=== PATIENT | male | born 1960 | race Caucasian/White ===

== ENCOUNTER 2019-03-10 06:00 | Outpatient (RCR) | payer BC, SELFPAY | END 2019-04-09 00:01 | LOC: SR3 06:00 | PROVIDERS: Family Provider Electrodiagnostic Medicine; Visit Provider Electrodiagnostic Medicine | DX: S06.2X9D Diffuse traumatic brain injury with loss of consciousness of unspecified duration, subsequent encounter (principal); X58.XXXD Exposure to other specified factors, subsequent encounter | CPT/HCPCS: 92507 ×6; 96125; 97110 ×17; 97112 ×11; 97530 ×3; 97535 ==

== ENCOUNTER 2019-04-10 17:37 | Outpatient (RCR) | payer BC, SELFPAY | END 2019-05-10 23:59 | disposition home or self-care (01) | LOC: SR3 17:37 | PROVIDERS: Family Provider Electrodiagnostic Medicine; Visit Provider Electrodiagnostic Medicine | DX: S06.2X9D Diffuse traumatic brain injury with loss of consciousness of unspecified duration, subsequent encounter (principal); X58.XXXD Exposure to other specified factors, subsequent encounter; R41.841 Cognitive communication deficit | CPT/HCPCS: 92507; 96125; 97110; 97112; 97530; 97535 ==

== ENCOUNTER → 2019-05-09 11:17 | Outpatient (BNVA) | payer BC, SELFPAY | PROVIDERS: Family Provider Electrodiagnostic Medicine; Referring Provider Electrodiagnostic Medicine; Visit Provider Otolaryngology | DX: J02.9 Acute pharyngitis, unspecified (principal); R49.0 Dysphonia | CPT/HCPCS: 31575; 99214 ==

== ENCOUNTER 2019-05-11 06:00 | Outpatient (RCR) | payer BC, SELFPAY | END 2019-06-08 23:59 | disposition home or self-care (01) | LOC: SR3 06:00 | PROVIDERS: Family Provider Electrodiagnostic Medicine; Visit Provider Electrodiagnostic Medicine | DX: S06.2X9D Diffuse traumatic brain injury with loss of consciousness of unspecified duration, subsequent encounter (principal); X58.XXXD Exposure to other specified factors, subsequent encounter | CPT/HCPCS: 92507; 97110; 97112; 97530 ==

== ENCOUNTER 2019-06-09 06:00 | Outpatient (RCR) | payer BC, SELFPAY | END 2019-07-09 23:59 | disposition home or self-care (01) | LOC: SR3 06:00 | PROVIDERS: Family Provider Electrodiagnostic Medicine; Visit Provider Electrodiagnostic Medicine | DX: S06.2X9A Diffuse traumatic brain injury with loss of consciousness of unspecified duration, initial encounter (principal); R41.841 Cognitive communication deficit; X58.XXXA Exposure to other specified factors, initial encounter | CPT/HCPCS: 92507; 97110; 97112 ==

== ENCOUNTER 2019-09-05 09:37 | Outpatient (CLI) | payer BC, SELFPAY ==
--- NOTE | 2019-09-05 09:42 | CT_ITS ---
WS: [id number] CT HEAD NONCONTRAST AND CONTRAST. TECHNIQUE: Noncontrast and contrast-enhanced CT of the head. CLINICAL INFORMATION: HEAD TRAUMA, TRAUMATIC ENCEPHALOPATHY, HYDROCEPHALUS COMPARISON: None. DLP: 1984.[address] scans at [facility] use at least one of these dose optimization techniques: automat ed exposure control; mA and/or kV adjustment per patient size (includes targeted exams where dose is matched to clinical indication); or iterative reconstruction. FINDINGS: Prior postoperative changes left frontal craniotomy with right frontoparietal craniectomy and right f rontotemporal craniotomy. Evidence of prior right frontotemporal fracture/fracture repair. Left frontal shunt catheter with tip in the third ventricle. Mild prominence of the frontal horns and third ventricle. No transependymal edema. Ex vacuo dilatation of the right lateral ventricle with en cephalomalacia involving the right posterior frontal, parietal, and temporal lobes. Chronic lacunar i nfarct involving the right jesus manuel. Chronic encephalomalacia involving the right parasagittal parietal a nd occipital lobes. Small chronic infarct left frontal lobe. No extra-axial fluid collections. No abnormal intracranial enhancement. Mastoid air cells well aerate d. Paranasal sinuses are well aerated. CT/CT head wo/w con [id number] IMPRESSION: 1. Evidence of prior traumatic brain injury with right frontal parietal and te mporal fractures and fracture repair with craniotomy and craniectomy. 2. Expected dilatation right lateral ventricle posterior horn with encephaloma lacia in the right posterior frontal and parietal lobes extending into the supe rior temporal lobe. 3. Left frontal shunt catheter with tip in the third ventricle. Mild prominenc e of the frontal horns and third ventricles. No transependymal edema. No signif icant hydrocephalus. 4. Normal fourth ventricle. 5. No abnormal intracranial enhancement.
[2019-09-05 10:09] LABS: Blood Urea Nitrogen 14 mg/dL (8-23); Glomerular Filtration Rate 68.3 mL/min (90-130)
[2019-09-05] MEDS: iohexol 300 mg/mL 100 mL Btl IV (10:22)
== END 2019-09-05 09:38 | disposition home or self-care (01) ==
LOC: RADWPI 09:39
PROVIDERS: Family Provider Electrodiagnostic Medicine; Visit Provider Electrodiagnostic Medicine
DX: Z98.2 Presence of cerebrospinal fluid drainage device (principal); G25.2 Other specified forms of tremor; F02.80 Dementia in other diseases classified elsewhere, unspecified severity, without behavioral disturbance, psychotic disturbance, mood disturbance, and anxiety; G91.9 Hydrocephalus, unspecified; S09.90XA Unspecified injury of head, initial encounter; X58.XXXA Exposure to other specified factors, initial encounter
CPT/HCPCS: 70470; 82565; 84520; Q9967

== ENCOUNTER 2019-12-04 06:00 | Outpatient (RCR) | payer BC, SELFPAY | END 2019-12-09 23:59 | disposition home or self-care (01) | LOC: SST 06:00 | PROVIDERS: PCP Electrodiagnostic Medicine; Referring Provider Electrodiagnostic Medicine; Visit Provider Electrodiagnostic Medicine | DX: I69.391 Dysphagia following cerebral infarction (principal); R41.841 Cognitive communication deficit; S06.2X9S Diffuse traumatic brain injury with loss of consciousness of unspecified duration, sequela; X58.XXXS Exposure to other specified factors, sequela | CPT/HCPCS: 92523 ==

== ENCOUNTER 2019-12-10 06:00 | Outpatient (RCR) | payer BC, SELFPAY | END 2020-01-08 23:59 | disposition home or self-care (01) | LOC: SST 06:00 | PROVIDERS: PCP Electrodiagnostic Medicine; Referring Provider Electrodiagnostic Medicine; Visit Provider Electrodiagnostic Medicine | DX: G25.2 Other specified forms of tremor (principal); I69.921 Dysphasia following unspecified cerebrovascular disease; F07.81 Postconcussional syndrome; G81.94 Hemiplegia, unspecified affecting left nondominant side; H53.462 Homonymous bilateral field defects, left side; Z87.820 Personal history of traumatic brain injury | CPT/HCPCS: 92507 ==

== ENCOUNTER 2020-01-09 06:00 | Outpatient (RCR) | payer BC, SELFPAY | END 2020-02-08 23:59 | disposition home or self-care (01) | LOC: SST 06:00 | PROVIDERS: PCP Electrodiagnostic Medicine; Referring Provider Electrodiagnostic Medicine; Visit Provider Electrodiagnostic Medicine | DX: I69.921 Dysphasia following unspecified cerebrovascular disease (principal); S06.2X9A Diffuse traumatic brain injury with loss of consciousness of unspecified duration, initial encounter; G25.2 Other specified forms of tremor; F07.81 Postconcussional syndrome; G81.94 Hemiplegia, unspecified affecting left nondominant side; H53.462 Homonymous bilateral field defects, left side | CPT/HCPCS: 92507 ==

== ENCOUNTER 2020-02-09 06:00 | Outpatient (RCR) | payer BC, SELFPAY | END 2020-03-09 23:59 | disposition home or self-care (01) | LOC: SST 06:00 | PROVIDERS: PCP Electrodiagnostic Medicine; Referring Provider Electrodiagnostic Medicine; Visit Provider Electrodiagnostic Medicine | DX: G25.2 Other specified forms of tremor (principal); S06.2X9D Diffuse traumatic brain injury with loss of consciousness of unspecified duration, subsequent encounter; X58.XXXD Exposure to other specified factors, subsequent encounter; F07.81 Postconcussional syndrome | CPT/HCPCS: 92507 ==

== ENCOUNTER 2020-05-16 21:35 | Emergency (ER) | payer BC, SELFPAY ==
[2020-05-16 21:38] VITALS: BP 132/84; PULSE 71; RESP 18; TEMP 36.6; O2SAT 95; BMI 27.1
[2020-05-16 21:45] VITALS: PULSE 65
--- NOTE | 2020-05-16 21:52 | XRR_ITS ---
PROCEDURE INFORMATION: Exam: XR Left Foot Exam date and time: 05/16/2020 10:16 PM Age: 59 years old Clinical indication: Injury or trauma; Other: Crush injury; Crushing; Toes; Left lesser toe(s); Injury details: Piece of wood fell from 3-4 ft onto left pinky toe TECHNIQUE: Imaging protocol: XR Left foot. Views: 1 or 2 views. COMPARISON: No relevant prior studies available. FINDINGS: Bones/joints: There is an acute comminuted fracture of the distal phalanx of the 5th digit of the left foot. Soft tissues: Normal. XR/XR foot LT 2V [id number] IMPRESSION: Acute comminuted fracture of the distal phalanx of the 5th digit of the left foot.
[2020-05-16 21:54] VITALS: BP 116/90; PULSE 66; RESP 16; O2SAT 95
--- NOTE | 2020-05-16 21:55 | ED_ITS ---
HPI - Extremity Problem General: Chief complaint: Extremity Injury, Lower Stated complaint: DROPPED WOOD ON L FOOT Time Seen by Provider: 05/16/20 21:44 Source: patient Mode of arrival: ambulatory Limitations: no limitations History of Present Illness: HPI Narrative: About 8 hours ago he dropped a piece of wood on his left foot and it hit the fifth digit on the toe. He sustained a tiny laceration to the palmar surface of the MTP. has tried to get the bleeding to stop but she says she has been unable to do that so she brought him here for evaluation. He denies any pain or limitation of his range of movement. MD Complaint: extremity pain Associated symptoms: Deny fever(s) or rash Review of Systems General: Reports: 10 or more systems reviewed and unremarkable except in HPI and below Const: Denies: fever(s), chills or body aches Eyes: Denies: change in vision or blurry vision ENMT: Denies: throat pain, enlarged tonsils, odynophagia, hoarseness, mouth pain or swelling of lips/tongue Card: Denies: palpitations, irregular heart rhythm, edema or swelling of feet/ankles Resp: Denies: dyspnea, productive cough or non-productive cough GI: Denies: abdominal pain, nausea or vomiting : Denies: flank pain, dysuria, urinary frequency, urinary urgency or urinary hesitancy Musc: Denies: neck pain, back pain or extremity swelling Skin/Breast: Denies: rash, pruritus or erythema Neuro: Denies: headache(s), numbness in extremities or weakness in extremities Endo: Denies: polyuria, polydipsia or tired all the time [facility] ED PFSH: Medical History (Updated 05/16/20 @ 22:50 by Yunior Wilson MD, [facility] [place]) Dysphonia Hydrocephalus TBI (traumatic brain injury) Family History (Reviewed 05/16/20 @ 22:05 by Yunior Wilson MD, [facility] [place]) Other Glaucoma Heart disease Social History (Reviewed 05/16/20 @ 22:05 by Yunior Wilson MD, [facility] [place]) Smoking and tobacco status: never smoked Physical Exam Const: COMMON NORMALS: no acute distress, average body habitus and healthy appearing HENMT: COMMON NORMALS: normocephalic and atraumatic HEAD & SCALP: normocephalic and atraumatic Resp: COMMON NORMALS: normal respiratory effort, No retractions, No use of accessory muscles and clear to auscultation bilaterally AUSCULTATION: clear to auscultation bilaterally Cardio: COMMON NORMALS: regular rate, regular rhythm, S1 normal heart sound present and S2 normal heart sound present RATE: regular rate RHYTHM: regular rhythm HEART SOUNDS: S1 normal heart sound present and S2 normal heart sound present GI: COMMON NORMALS: Normal to inspection, nondistended, normoactive bowel sounds present, Soft to palpation and non-tender PALPATION: Yes Soft to palpation Extremity: NARRATIVE EXTREMITY EXAM: There is some bruising on the left fifth toe. There is a 0.5 cm longitudinal laceration on the plantar surface of the MTP of the fifth toe. Mild oozing of blood from the wound. There appears to be some crepitus on moving the toe. There is some tenderness to palpation. Neurovascular status is intact. Procedures Laceration Laceration 1: Site: lower extremity (foot) Side (If applicable): left Size (cm): 0.5 Description: linear Depth: simple, single layer Local Anesthetic: other anesthetic (topical) Pre-repair: wound explored and irrigated extensively Skin layer closed with: nylon Size (cm): 4-0 Number of sutures: 2 Technique: simple, interrupted Orthopedic Splinting/Casting Injury #1: Side: left Lower Extremity Injury Location: toe Lower Extremity Immobilizer: keyona tape Course Vital Signs: Vital signs: Vital Signs Temperature 97.8 F 05/16/20 21:38 Pulse Rate 66 05/16/20 22:55 Respiratory Rate 18 05/16/20 22:55 Blood Pressure 143/81 05/16/20 22:55 Pulse Oximetry 95 05/16/20 22:55 MDM - Extremity (Nontraumatic) [facility] Narrative: Medical decision making narrative: 59 year old male who dropped a piece of wood on his left small toe and sustained a fracture of the distal phalanx of the small toe. He also has a laceration of the plantar surface of the MTP, about 0.5 cm in length. The wound was sutured and bleeding controlled. The toe was keyona taped to fourth toe. He is to f/u with his PCP for further evaluation. He is advised to have the sutures taken out in 7 days. Medical Records: Attestation: I reviewed the patient's medical records. Imaging Data^: Xray Ortho: Attestation: I personally reviewed and interpreted this imaging study as follows: My impression: comminuted fracture of the distal phalanx of the left fifth toe. Discharge Plan Discharge Patient Disposition: Home Clinical Impression: Closed fracture of distal phalanx of toe of left foot Foot laceration Qualifiers: Encounter type: initial encounter Laterality: left Qualified Code(s): S91.312A - Laceration without foreign body, left foot, initial encounter Condition: Stable Prescriptions: Continued multivitamin [Daily Multi-Vitamin] Tablet 1 tab PO QDAY RF: 0 escitalopram oxalate [Lexapro] 10 mg tablet 10 mg PO QDAY RF: 0 phytodefense PO RF: 0 sports pack PO RF: 0 cholecalciferol (vitamin D3) 10,000 unit capsule 5,000 unit PO QDAY RF: 0 salmon oil PO RF: 0 coenzyme Q10 [Co Q-10] 50 mg capsule 50 mg PO QDAY RF: 0 enzyme PO RF: 0 betagest PO RF: 0 masculine herbal formula PO RF: 0 Lactobacillus acidophilus PO RF: 0 calcium magnesium PO RF: 0 lipotropic PO RF: 0 herbal formula PO RF: 0 latanaprost PO RF: 0 timalol PO RF: 0 Discharge Orders: Discharge ED (Routine); Ordered 05/16/20 Ordered By: Yunior Wilson Referrals: Conrad Farr DO [Primary Care Provider] - 1-3 days Discharge Diet: Usual diet Discharge Activity: Increase activity as tolerated Patient Instructions: Laceration (ED), Toe Fracture (ED) Activity Restrictions/Additional Instructions: Return for any new or worsening symptoms. Follow-up with your primary care provider within 3 days. Keep the wound dressing on for 2 days, then take it off, clean with soap and water, apply an antibiotic ointment and dress with gauze. You can bear weight as tolerated but I would advise not standing too long 1-year-old until your pain improves. Take Tylenol or ibuprofen as needed for pain. Keyona tape the last 2 toes to help the fracture heal. Coding Level of Care Code ED Application Support Technician for David Fwd Exam Detailed
[2020-05-16] MEDS: lidocaine-prilocaine cream 5 gm 1 APPLIC TOPICAL (21:58)
[2020-05-16 22:55] VITALS: BP 143/81; PULSE 66; RESP 18; O2SAT 95
== END 2020-05-16 22:54 | disposition home or self-care (01) ==
PROVIDERS: Emergency Provider Family Medicine; PCP Electrodiagnostic Medicine
DX: S92.532A Displaced fracture of distal phalanx of left lesser toe(s), initial encounter for closed fracture (principal); S91.312A Laceration without foreign body, left foot, initial encounter; W20.8XXA Other cause of strike by thrown, projected or falling object, initial encounter
CPT/HCPCS: 12001; 12345; 73620; 99281; 99282

== ENCOUNTER 2020-09-08 10:22 | Outpatient (CLI) | payer MEDICARE, BC, SELFPAY ==
--- NOTE | 2020-09-08 10:34 | CT_ITS ---
WS: [id number] CT HEAD WITH AND WITHOUT CONTRAST HISTORY: Hemiparesis, left HEMIANOPSIA, HOMONYMOUS, hX OF EDITOR BOOK SHUNT revision TECHNIQUE: Noncontrast 2.5 mm axial images obtained from the vertex to the skull base. Additional gnee ging performed at 2.5 mm axial images status post IV contrast. Bone and soft tissue windows are revie wed. All CT scans at [facility] use at least one of these dose optimization techniques: a utomated exposure control; mA and/or kV adjustment per patient size (includes targeted exams where do se is matched to clinical indication); or iterative reconstruction. CONTRAST: Omnipaque 300; 95 mL IV. DLP: 1984.08 mGycm COMPARISON: 09/05/2019 Prior LEFT frontal craniotomy with RIGHT frontal parietal craniectomy and RIGHT frontotemporal cranio brennon. Prior repair of a RIGHT frontotemporal fracture. LEFT frontal EDITOR BOOK shunt catheter with tip terminating in the third ventricle is unchanged. No change in appearance of the ventricles. No developing hydrocephalus. There is mild ex vacuole dilatation of th e RIGHT lateral ventricle with encephalomalacia in the RIGHT posterior frontal, parietal and temporal lobes. No acute hemorrhage is identified. No inferior displacement of the cerebellum. No enhancing mass or vascular malformations identified. Dural venous sinuses are normally enhancing. Mildly ectatic intracranial carotid arteries. No aneurysm or interval change. Paranasal sinuses as visualized: Moderate mucoperiosteal thickening in the LEFT maxillary sinus. No a ir-fluid levels. Mastoid air cells: Clear. CT/CT head wo/w con [id number] IMPRESSION: 1. Stable appearance of the LEFT frontal EDITOR BOOK shunt catheter with tip terminatin g in the third ventricle. No development of hydrocephalus. 2. Posttraumatic brain injury with craniectomy and craniotomy sites as describ ed above which are stable. 3. Exvacuodilatation of the RIGHT lateral ventricle secondary to encephalomala barry in the RIGHT frontal, parietal and temporal lobes. 4. No enhancing lesions.
[2020-09-08 11:03] LABS: Blood Urea Nitrogen 17 mg/dL (8-23); Glomerular Filtration Rate 85.8 mL/min (90-130)
[2020-09-08] MEDS: iohexol 300 mg/mL 100 mL Btl IV (11:12)
== END 2020-09-08 10:23 | disposition home or self-care (01) ==
PROVIDERS: PCP Electrodiagnostic Medicine; Visit Provider Electrodiagnostic Medicine
DX: G81.90 Hemiplegia, unspecified affecting unspecified side (principal); H53.462 Homonymous bilateral field defects, left side; H40.9 Unspecified glaucoma; Z98.2 Presence of cerebrospinal fluid drainage device
CPT/HCPCS: 70470; 82565; 84520; Q9967

== ENCOUNTER 2020-11-24 13:18 | Outpatient (CLI) | payer MEDICARE, BC, SELFPAY ==
--- NOTE | 2020-11-24 13:28 | XR_ITS ---
WS: [id number] FOOT LEFT TECHNIQUE: 3 views of the left foot CLINICAL INFORMATION: FOOT PAIN, LEFT COMPARISON: None. FINDINGS: No evidence of acute fracture or dislocation. Normal tarsal metatarsal alignment. Normal calcaneus. N ormal visualized talar dome. Mild diffuse soft tissue edema. Prior healed fracture deformity fifth di stal phalanx. XR/XR foot LT min 3V* [id number] IMPRESSION: Mild diffuse soft tissue edema. No acute fractures.
== END 2020-11-24 13:19 | disposition home or self-care (01) ==
PROVIDERS: PCP Electrodiagnostic Medicine; Visit Provider Electrodiagnostic Medicine
DX: M79.672 Pain in left foot (principal); R60.0 Localized edema
CPT/HCPCS: 73630

== ENCOUNTER 2022-11-14 11:44 | Outpatient (CLI) | payer MEDICARE, BC, SELFPAY ==
--- NOTE | 2022-11-14 11:54 | CT_ITS ---
WS: [id number] CT SINUSES TECHNIQUE: Noncontrast CT of the paranasal sinuses with coronal and sagittal reformatted images. CLINICAL INFORMATION: CHRONIC RECURRENT SINUSITIS DLP: 387.[address] scans at [facility] use at least one of these dose optimization techniques: automated e xposure control; mA and/or kV adjustment per patient size (includes targeted exams where dose is matc hed to clinical indication); or iterative reconstruction. FINDINGS: LEFT to RIGHT nasal septal deviation measuring 6.4 mm. Paranasal sinuses are well aerated. Inspissate d secretions in the LEFT maxillary sinus with increased attenuation and mineralization. Opacification of the ostiomeatal units bilaterally. Air-fluid level in RIGHT maxillary sinus. Fluid opacification in the frontal ethmoidal recesses with mucosal thickening. Partial opacification of the ethmoid air c ells LEFT greater than RIGHT. Mild mucosal thickening RIGHT sphenoid sinus extending along the spheno id sinus ostia. Mastoid air cells well aerated. Normal posterior nasopharynx. Normal parapharyngeal f at. Partially visualized shunt catheter with tip in the 3rd ventricle. Chronic encephalomalacia RIGHT fro ntoparietal junction extending into the RIGHT posterior temporal lobe. Intracranial vascular calcific ation. CT/CT sinus wo con* [id number] IMPRESSION: 1. Paranasal sinusitis with complete opacification LEFT maxillary sinus with n ear complete opacification RIGHT maxillary sinus. Inspissated secretions in the LEFT maxillary sinus. Opacification ostiomeatal units bilaterally. 2. Opacification LEFT frontal sinuses and LEFT ethmoid air cells. Partial opac ification RIGHT frontal sinus with air-fluid levels. 3. Mucosal thickening along the RIGHT sphenoid sinus ostia. 4. Mastoid air cells are well aerated. 5. LEFT to RIGHT nasal septal deviation measuring 6.4 mm.
== END 2022-11-14 11:45 | disposition home or self-care (01) ==
LOC: RAD 11:51
PROVIDERS: PCP Electrodiagnostic Medicine; Visit Provider Electrodiagnostic Medicine
DX: J32.8 Other chronic sinusitis (principal); J34.2 Deviated nasal septum
CPT/HCPCS: 70486

== ENCOUNTER 2023-04-20 16:15 | Outpatient (RCR) | payer MEDICARE, BC, SELFPAY | END 2023-05-10 23:59 | disposition home or self-care (01) | LOC: SOT 16:15 | PROVIDERS: Visit Provider Electrodiagnostic Medicine | DX: G81.91 Hemiplegia, unspecified affecting right dominant side (principal) | CPT/HCPCS: 97167; 97530 ==

== ENCOUNTER 2023-05-15 13:03 | Outpatient (RCR) | payer MEDICARE, BC, SELFPAY | END 2023-06-08 23:59 | disposition home or self-care (01) | LOC: SOT 13:03 | PROVIDERS: PCP Electrodiagnostic Medicine; Visit Provider Electrodiagnostic Medicine | DX: G81.91 Hemiplegia, unspecified affecting right dominant side (principal) | CPT/HCPCS: 97530 ==